=== PATIENT | male | born 1955 | race Hispanic/Latino ===

== ENCOUNTER 2021-08-02 15:16 | Emergency (ER) | payer MEDICARE ==
[2021-08-02] MEDS ORDERED: ONDANSETRON 4 MG/2 ML INJ IV ONE (16:11)
[2021-08-02] MEDS ORDERED: MORPHINE 4 MG/1 ML INJ IV ONE (16:11)
--- NOTE | 2021-08-02 16:33 | Emergency Department Report ---
- General Chief Complaint: Wound/Laceration Stated Complaint: LT FINGER INJURY Source: patient Mode of arrival: Ambulatory Limitations: No Limitations - History of Present Illness Initial Comments: 65 yo M who present with amputation injury to his left 4th finger while using a motorized drill working on concrete. Pt have had the 3th finger amputated the same way while he was 16 yrs old. Bleeding in minimal with direct pressure. Pt reports pain and still able to move finger. No other modifying or associated factors. - Related Data Previous Rx's Medication Instructions Recorded Last Taken Type cephALEXin [Keflex] 500 mg PO Q12HR 10 Days #20 cap NS 08/02/21 Unknown Rx oxyCODONE /ACETAMINOPHEN [Percocet 1 tab PO Q6HR PRN 5 Days #20 08/02/21 Unknown Rx 5/325] tablet NS Allergies Allergy/AdvReac Type Severity Reaction Status Date / Time No Known Allergies Allergy Unverified 08/02/21 16:07 ED Review of Systems ROS: Stated complaint: LT FINGER INJURY Other details as noted in HPI Comment: All other systems reviewed and negative Musculoskeletal: other (left 4th finger laceration/amputation) ED Past Medical Hx - Past Medical History Previous Medical History?: Yes Hx Hypertension: Yes - Surgical History Past Surgical History?: No Additional Surgical History: previous 3 rd left finger amputation - Social History Smoking Status: Never Smoker Substance Use Type: None - Medications Home Medications: Home Medications Medication Instructions Recorded Confirmed Last Taken Type cephALEXin [Keflex] 500 mg PO Q12HR 10 Days #20 cap NS 08/02/21 Unknown Rx oxyCODONE /ACETAMINOPHEN [Percocet 1 tab PO Q6HR PRN 5 Days #20 08/02/21 Unknown Rx 5/325] tablet NS ED Physical Exam - General Limitations: No Limitations General appearance: alert, in no apparent distress - Head Head exam: Present: atraumatic, normal inspection - Eye Eye exam: Present: normal appearance Pupils: Present: normal accommodation - ENT ENT exam: Present: normal exam, normal orophraynx, mucous membranes moist - Neck Neck exam: Present: normal inspection - Respiratory Respiratory exam: Present: normal lung sounds bilaterally. Absent: respiratory distress, accessory muscle use - Cardiovascular Cardiovascular Exam: Present: regular rate, normal rhythm, normal heart sounds - GI/Abdominal GI/Abdominal exam: Present: soft. Absent: tenderness - Extremities Exam Extremities exam: Present: full ROM, tenderness, other (left 4th finger tip amputation with bony exposure) - Back Exam Back exam: Present: normal inspection, full ROM. Absent: tenderness - Neurological Exam Neurological exam: Present: alert, oriented X3 - Psychiatric Psychiatric exam: Present: normal affect, normal mood - Skin Skin exam: Present: warm, normal color ED Course Vital Signs 08/02/21 08/02/21 08/02/21 15:27 16:07 19:03 Temperature 97.8 F Pulse Rate 91 H 79 94 H Respiratory 20 19 18 Rate Blood Pressure 144/95 147/81 154/109 [Left] O2 Sat by Pulse 96 95 97 Oximetry 08/02/21 21:00 Temperature 98.2 F Pulse Rate 74 Respiratory 17 Rate Blood Pressure 132/77 [Left] O2 Sat by Pulse 97 Oximetry - Reevaluation(s) Reevaluation #1: 08/02/21 16:33 here with left 4th finger laceration and amputation-- will go ahead and get xray for confirmation and given Morphine 4 mg IV x 1 with Zofran 4 mg IV x 1--while waiting for imaging--Orthopedic will be consulted with the xray result. 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 Will go ahead and give Ancet 1 g considering this to be open fracture. Dr Sterling pagemiriam. - Consultations Consultation #1: 08/02/21 18:10 Dr Sterling Orthopedic 08/02/21 19:05 Was able to connect with Dr Sterling on his cell phone-- he agreed to given the Ancef 2 g and wanted the laceration cover with gauze dressing and have the patient call his office on Thursday for outpatient procedure. Will also discharge patient home on keflex prophylactic for infection. ED Medical Decision Making - Radiology Data Radiology results: report reviewed FINDINGS: There is amputation of the ring finger distally with amputation of the ring finger distal tuft which appears to be acute. 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 Critical care attestation.: If time is entered above; I have spent that time in minutes in the direct care of this critically ill patient, excluding procedure time. ED Disposition Clinical Impression: Amputation finger Qualifiers: Encounter type: initial encounter Qualified Code(s): S68.119A - Complete traumatic metacarpophalangeal amputation of unspecified finger, initial encounter Disposition: HOME / SELF CARE / HOMELESS Is pt being admited?: No Does the pt Need Aspirin: No Condition: Stable Instructions: Traumatic Finger Amputation Additional Instructions: It is very important that you call Dr. Sterling your orthopedic surgeon on Thursday, August 05 for an appointment for likely outpatient procedure It is also equally important that you take and complete your antibiotic to prevent infection Take your pain medication as prescribed Please do not hesitate to call or return to emergency room if your pain or symptoms worsen Please do not saturate your open wound with water of fluid to prevent infection Prescriptions: cephALEXin [Keflex] 500 mg PO Q12HR 10 Days #20 cap NS oxyCODONE /ACETAMINOPHEN [Percocet 5/325] 1 tab PO Q6HR PRN 5 Days #20 tablet NS PRN Reason: Pain Referrals: DAVON STERLING MD [Staff Physician] - 3-5 Days Time of Disposition: 19:10
--- NOTE | 2021-08-02 16:57 | XRay Report ---
XR finger(s) 2+V LT INDICATION: laceration. COMPARISON: None available. FINDINGS: There is amputation of the ring finger distally with amputation of the ring finger distal tuft which appears to be acute. 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 Signer Name: Florian Gomez MD Signed: 08/02/2021 4:53 PM Workstation Name: [facility][id number]
[2021-08-02] MEDS ORDERED: SODIUM CHLORIDE IRRI 500 ML 500 ML IR ONE (19:49)
[2021-08-02 21:01] VITALS: BP 132/77
== END 2021-08-02 21:10 | disposition home or self-care (01) ==
LOC: ED 15:16
DX: S68.113A Complete traumatic metacarpophalangeal amputation of left middle finger, initial encounter (principal); I10 Essential (primary) hypertension; X58.XXXA Exposure to other specified factors, initial encounter; Y93.89 Activity, other specified; Y92.89 Other specified places as the place of occurrence of the external cause; Y99.8 Other external cause status
CPT/HCPCS: 73140; 96365; 96375; 99283; J0690; J2270; J2405